=== PATIENT | male | born 1955 | race Caucasian/White ===

== ENCOUNTER 2019-04-13 18:42 | Emergency (ER) | payer OTHER ==
[~2019-04-13] VITALS: Ht 190.5 cm; Wt 102.1 kg
[2019-04-13] MEDS ORDERED: ASA81BEC PO (19:07)
[2019-04-13] MEDS ORDERED: LIPITOR10 MG PO (19:07)
[2019-04-13] MEDS ORDERED: ALPRAZOLAM 0.0.25 M1 PO (19:07)
[2019-04-13] MEDS ORDERED: GLIPIZIDE 10 MG10 MG PO (19:08)
[2019-04-13] MEDS ORDERED: CHROMIUM PICO200 MC1 PO (19:08)
[2019-04-13] MEDS ORDERED: MICROZIDE12.5 MG PO (19:09)
[2019-04-13] MEDS ORDERED: LISINOPRIL2.5 MG PO (19:09)
[2019-04-13] MEDS ORDERED: NORVASC 2.5 MG2.5 M1 (19:10)
[2019-04-13] MEDS ORDERED: METFORMIN HCL500 M3 PO (19:10)
[2019-04-13] MEDS ORDERED: RYBELSUS3 MG PO (19:11)
[2019-04-13 19:34] LABS: ABSOLUTE EOSINOPHILS 0.1 thou/uL (0.0-0.7); ABSOLUTE LYMPHOCYTES 1.3 thou/uL (0.8-5.3); ABSOLUTE MONOCYTES 0.6 thou/uL (0.0-1.2); ABSOLUTE NEUTROPHILS 3.8 thou/uL (1.6-8.1); BASOPHILS 0.6 %; EOSINOPHILS 0.9 %; HEMATOCRIT 42.6 % (42.0-52.0); HEMOGLOBIN 14.7 gm/dL (14.0-18.0); LYMPHOCYTES 21.5 %; MCH 33.1 pg (26.0-34.0); MCHC 34.4 g/dL (28.0-37.0); MCV 96.3 fL (80.0-100.0); MPV 7.6 fl. (7.2-11.1); NUCLEATED RBCS 0 /100WBC; PLATELET COUNT* 252 thou/uL (150-400); RBC 4.42 mil/uL (4.50-6.00); RDW-CV 12.9 % (10.5-14.5); WBC 5.8 thou/uL (4.0-11.0)
[2019-04-13 19:43] LABS: CALCIUM 9.3 mg/dL (8.5-10.1); CREATININE 1.2 mg/dL (0.6-1.3); POTASSIUM 3.8 mmol/L (3.5-5.1)
[2019-04-13 19:47] LABS: PROTIME 10.1 Seconds (9.20-11.50)
[2019-04-13 19:53] LABS: ALBUMIN 4.2 g/dL (3.4-5.0); TOTAL BILIRUBIN 0.3 mg/dL (<0.1-1.0); TOTAL PROTEIN 8.1 g/dL (6.4-8.2)
[2019-04-13 22:26] VITALS: BP 141/95
--- NOTE | 2019-04-14 13:25 | EKG ---
[place] [address] ELECTROCARDIOGRAM REPORT Name: JAYDE ANDRES Room: [facility]#: [id number] Admission: 04/13/19 Attend Phys: Discharge: 04/13/19 Date of : 57 Report #: [id number] THIS REPORT FOR: //name// [facility] ED Test Date: 2019-04-13 Test Time: 19:43:17 Pat Name: JAYDE ANDRES Department: Room: Gender: M [employer] Supervisor: FERMIN : 1955 Requested By: Mansi Hood Order Number: [id number] MD: Tyler Arreguin Measurements Intervals [place] Rate: 102 P: 54 NE: 188 QRS: 17 QRSD: 108 T: 28 QT: 362 QTc: 472 Interpretive Statements Sinus tachycardia Probable left atrial enlargement No previous ECG available for comparison Electronically Signed On 04-14-2019 13:25:28 [employer]UNT PERSON by Tyler Arreguin [email or web address] <ELECTRONICALLY SIGNED> By: Tyler Arreguin MD, [facility] 04/14/19 1325 194 42 Tyler Arreguin MD, FACC /EPI
--- NOTE | 2019-04-14 13:26 | EKG ---
[place] [address] ELECTROCARDIOGRAM REPORT Name: JAYDE ANDRES Room: [facility]#: [id number] Admission: 04/13/19 Attend Phys: Discharge: 04/13/19 Date of : 57 Report #: [id number] THIS REPORT FOR: //name// [facility] ED Test Date: 2019-04-13 Test Time: 21:48:45 Pat Name: JAYDE KYLELAKHWINDER Department: Room: Gender: M [employer] Set Up Mechanic: FERMIN : 1955 Requested By: Mansi Hood Order Number: [id number] MD: Tyler Arreguin Measurements Intervals [place] Rate: 88 P: 63 GA: 159 QRS: 30 QRSD: 95 T: 47 QT: 403 QTc: 488 Interpretive Statements Sinus rhythm Probable left atrial enlargement Borderline prolonged QT interval Baseline wander in lead(s) I,II,aVR Electronically Signed On 04-14-2019 13:26:18 [employer] CLERK by Tyler Arreguin [email or web address] <ELECTRONICALLY SIGNED> By: Tyler Arreguin MD, [facility] 04/14/19 1326 2148 47 Tyler Arreguin MD, FACC /EPI
== END 2019-04-13 22:26 | disposition home or self-care (01) ==
LOC: M.ERS 18:42
PROVIDERS: Emergency Medicine
DX: M79.602 Pain in left arm (principal); E83.42 Hypomagnesemia; I10 Essential (primary) hypertension; E11.9 Type 2 diabetes mellitus without complications